=== PATIENT | female | born 1995 | race Asian ===

== ENCOUNTER 2017-08-21 19:02 | Emergency (ER) | payer OTHER ==
[2017-08-21] MEDS ORDERED: NS 0.9% 1000 ML* 1,000 ML IV ONE (20:02)
[2017-08-21 21:35] LABS: ABS Basophils 0.1 10^3/ul (0-0.2); ABS Eosinophils 0.2 10^3/ul (0-0.6); ABS Lymphocytes 3.3 10^3/ul (1.0-4.8); ABS Monocytes 0.6 10^3/ul (0-0.8); ABS Neutrophils 6.9 10^3/ul (1.5-7.7); ABS Nucleated RBC 0 10^3/ul; Eosinophil % 1.6 % (0-6); Hematocrit 39 % (35-47); Hemoglobin 13.2 g/dl (12.0-16.0); Lymphocyte % 29.9 % (25-47); Mean Corpuscular HGB Conc 34 g/dl (31-36); Mean Corpuscular Hemoglobin 28 pg (27-31); Mean Corpuscular Volume 83 fL (80-97); Mean Platelet Volume 8.9 um3 (7.4-10.4); Nucleated Red Blood Cells % 0; Platelet Count 319 10^3/ul (150-450); Red Blood Count 4.73 10^6/ul (4.0-5.4); Red Cell Distribution Width 14 % (10.5-15); White Blood Count 11.2 10^3/ul (3.5-10.8)
[2017-08-21 21:48] LABS: EGFR Non-African American 142.5 (>60)
[2017-08-21] MEDS ORDERED: Famotidine TAB* 20 MG PO ONE (22:10)
[2017-08-21] MEDS ORDERED: predniSONE TAB* 20 MG PO ONE (22:10)
[2017-08-21] MEDS ORDERED: diPHENhydraMINE PO* 25 MG PO ONE (22:10)
[2017-08-22 00:09] VITALS: BP 125/78
--- NOTE | 2017-08-22 04:37 | ED ---
Rosas Albright Jennifer, scribed for Nathan Bay MD on 08/21/17 at 2212 . Palpitations / Dysrhythmia - HPI Summary HPI Summary: The patient is a 22 year old female who was sent from [facility] for fast palpitations and high blood pressure today. The patient states her symptoms originally began with itchiness in the back of the throat, trouble swallowing, and a weird feeling in her tongue. She reports these symptoms began about 1-2 hours after eating salmon and shrimp. Patient states she took her usual medications today, including Zyrtec, Lexapro, and Metformin. She denies wheezes , tongue swelling, and lip swelling. She adds that she had a slight fever at [facility] but not in the ED. - History of Current Complaint Chief Complaint: EDDysrhythmPalp Time Seen by Provider: 08/21/17 22:03 Hx Obtained From: Patient Onset/Duration: Sudden Onset, Lasting Hours, Still Present, Other - Some symptoms have improved since initial onset Timing: Constant Severity Initially: Mild Severity Currently: Mild Character: Fast Aggravating: Nothing Alleviating: Nothing Associated Signs & Symptoms: Negative - wheezes, tongue swelling, lip swelling - Allergy/Home Medications Allergies/Adverse Reactions: Allergies Allergy/AdvReac Type Severity Reaction Status Date / Time No Known Allergies Allergy Verified 08/21/17 19:10 PMH/Surg Hx/FS Hx/Imm Hx History: Reports: Other Problems/Disorders - Hx PCOS Psychiatric History: Reports: Hx Anxiety, Hx Eating Disorder - Hx restrictive eating Infectious Disease History: No Infectious Disease History: Denies: Traveled Outside the [place] in Last 30 Days - Family History Known Family History: Negative: Renal Disease - Social History Occupation: Student Alcohol Use: None Hx Substance Use: No Substance Use Type: Reports: None Hx Tobacco Use: No Smoking Status (MU): Never Smoked Tobacco Review of Systems ENT: Negative - Tongue swelling, lip swelling, Other - Itchy throat, trouble swallowing, "weird feeling" in tongue Positive: Palpitations, Other - Hypertension Respiratory: Negative - Wheezing All Other Systems Reviewed And Are Negative: Yes Physical Exam - Summary Physical Exam Summary: Appearance: Well appearing, no pain distress, patient appears comfortable Skin: warm, dry, reflects adequate perfusion, no rash Head/face: normal Eyes: EOMI, ERIKA ENT: normal, No uvular edema, throat clear Neck: supple, non-tender Respiratory: CTA, breath sounds present, no wheezing Cardiovascular: Tachycardic, regular rhythm, pulses symmetrical Abdomen: non-tender, soft Bowel Sounds: present Musculoskeletal: normal, strength/ROM intact Neuro: normal, sensory motor intact, A&Ox3 Triage Information Reviewed: Yes Vital Signs On Initial Exam: Initial Vitals Temp Pulse Resp BP Pulse Ox 97.9 F 120 18 142/98 98 08/21/17 19:06 08/21/17 19:06 08/21/17 19:06 08/21/17 19:06 08/21/17 19:06 Vital Signs Reviewed: Yes Diagnostics - Vital Signs Vital Signs Temp Pulse Resp BP Pulse Ox 08/21/17 21:01 99.2 F 119 16 135/87 100 08/21/17 19:06 97.9 F 120 18 142/98 98 - Laboratory Lab Results: Lab Results 08/21/17 08/21/17 Range/Units 21:22 21:22 WBC 11.2 H (3.5-10.8) 10^3/ul RBC 4.73 (4.0-5.4) 10^6/ul Hgb 13.2 (12.0-16.0) g/dl Hct 39 (35-47) % MCV 83 (80-97) fL MCH 28 (27-31) pg MCHC 34 (31-36) g/dl RDW 14 (10.5-15) % Plt Count 319 (150-450) 10^3/ul MPV 8.9 (7.4-10.4) um3 Neut % (Auto) 61.8 (38-83) % Lymph % (Auto) 29.9 (25-47) % Union % (Auto) 5.6 (0-7) % Eos % (Auto) 1.6 (0-6) % Baso % (Auto) 1.1 (0-2) % Absolute Neuts (auto) 6.9 (1.5-7.7) 10^3/ul Absolute Lymphs (auto) 3.3 (1.0-4.8) 10^3/ul Absolute Monos (auto) 0.6 (0-0.8) 10^3/ul Absolute Eos (auto) 0.2 (0-0.6) 10^3/ul Absolute Basos (auto) 0.1 (0-0.2) 10^3/ul Absolute Nucleated RBC 0 10^3/ul Nucleated RBC % 0 Sodium 138 L (139-145) mmol/L Potassium 4.0 (3.5-5.0) mmol/L Chloride 103 (101-111) mmol/L Carbon Dioxide 26 (22-32) mmol/L Anion Gap 9 (2-11) mmol/L BUN 9 (6-24) mg/dL Creatinine 0.54 (0.51-0.95) mg/dL Est GFR ( Amer) 183.3 (>60) Est GFR (Non-Af Amer) 142.5 (>60) BUN/Creatinine Ratio 16.7 (8-20) Glucose 98 (70-100) mg/dL Calcium 9.2 (8.6-10.3) mg/dL Monoscreen Negative (Negative) Result Diagrams: 08/21/17 21:22 08/21/17 21:22 Lab Statement: Any lab studies that have been ordered have been reviewed, and results considered in the medical decision making process. - EKG 2100 Cardiac Rate: Tachycardia EKG Rhythm: Sinus Tachycardia - [address] Segment: Normal EKG Interpretation: Normal axis, intervals, and ST Re-Evaluation - Re-Evaluation First Eval Re-Evaluation Time: 23:11 Change: Improved Comment: The patient reports she feels better, and her heart rate is now down to 90 BPM. Course/Dx - Course Course Of Treatment: Patient with abrupt onset of throat tightness and tingling in the mouth after eating shellfish tonight. No previous allergy with same. Referred here with tachycardia. This proved to be sinus tachycardia. Her symptoms improved significantly with oral Benadryl, steroid and IV Pepcid along with fluids. She had no more serious signs of allergy. Her lungs were clear and she had no wheezing. I prescribed her ongoing H2 anabell as well as an EpiPen. I will not place her on steroids given that she has intense anxiety and I fear that the steroids will make that much worse. - Diagnoses Provider Diagnoses: Seafood allergy, Sinus tachycardia Discharge - Sign-Out/Discharge Documenting (check all that apply): Discharge/Admit/Transfer - Discharge Plan Condition: Improved Disposition: HOME Prescriptions: EPINEPHrine [Epipen 2-Giovanni] 0.3 mg IM ONCE PRN #1 box PRN Reason: severe allergy symptoms Famotidine TAB* [Pepcid 20 MG TAB*] 20 mg PO BID PRN #20 tab PRN Reason: Allergy Symptoms Patient Education Materials: Food Allergy (ED) Referrals: [facility] - Baljinder [Medical Doctor] - Kamala Kim NP [Primary Care Provider] - Additional Instructions: Strictly avoid shellfish in your diet. EpiPen is for severe symptoms. Call your doctor in the morning for referral for allergy testing. Return if worse, new symptoms or other concerns. - Billing Disposition and Condition Condition: STABLE Disposition: HOME The documentation as recorded by the Rosas thompson Jennifer accurately reflects the service I personally performed and the decisions made by , Nathan Bay MD.
== END 2017-08-21 23:30 | disposition home or self-care (01) ==
LOC: ED 19:02
DX: R09.89 Other specified symptoms and signs involving the circulatory and respiratory systems (principal); R20.2 Paresthesia of skin; T78.1XXA Other adverse food reactions, not elsewhere classified, initial encounter; R00.0 Tachycardia, unspecified
CPT/HCPCS: 36415; 80048; 85025; 86308; 87651; 93005; 96360; 99283; A9270-GY; J7512

== ENCOUNTER 2018-01-15 09:36 | Emergency (ER) | payer OTHER ==
[2018-01-15 09:50] VITALS: BP 122/73
--- NOTE | 2018-01-15 10:37 | UC ---
Throat Pain/Nasal [place] HPI - HPI Summary HPI Summary: 22-year-old woman coming in with a chief complaint sore throat. Symptoms started a week ago. The pain is getting worse. Now she is having sinus pressure with green rhinorrhea. Her ears feel clogged up. She is no posterior neck pain. She's tried throat lozenges they do not help. Drinking cold beverages does help. He said chills no documented fevers. - History of Current Complaint Chief Complaint: UCRespiratory Stated Complaint: SORE THROAT, AND EAR ACHE Time Seen by Provider: 01/15/18 10:22 Pain Intensity: 6 - Allergies/Home Medications Allergies/Adverse Reactions: Allergies Allergy/AdvReac Type Severity Reaction Status Date / Time No Known Allergies Allergy Verified 01/15/18 09:49 Home Medications: Home Medications Escitalopram Oxalate [Lexapro 20 mg] 20 mg PO DAILY 01/15/18 [History Confirmed 01/15/18] Metformin ER (NF) 1,000 mg PO BID 01/15/18 [History Confirmed 01/15/18] PMH/Surg Hx/FS Hx/Imm Hx Previously Healthy: Yes - Surgical History Surgical History: None - Family History Known Family History: Negative: Diabetes, Renal Disease - Social History Alcohol Use: Weekly Substance Use Type: None Smoking Status (MU): Never Smoked Tobacco Review of Systems Constitutional: Negative Skin: Negative Eyes: Negative ENT: Sore Throat, Ear Ache, Nasal Discharge, Sinus Congestion, Sinus Pain/ Tenderness Respiratory: Negative Cardiovascular: Negative Gastrointestinal: Negative Motor: Negative Neurovascular: Negative Musculoskeletal: Negative Neurological: Negative Psychological: Negative Is Patient Immunocompromised?: No All Other Systems Reviewed And Are Negative: Yes Physical Exam Triage Information Reviewed: Yes Appearance: No Pain Distress, Well-Nourished, Ill-Appearing - mild Vital Signs: Initial Vital Signs Temp 97.0 F 01/15/18 09:45 Pulse 103 01/15/18 09:45 Resp 18 01/15/18 09:45 BP 122/73 01/15/18 09:45 Pulse Ox 96 01/15/18 09:45 Vital Signs Reviewed: Yes Eye Exam: Normal ENT: Positive: Pharyngeal erythema, Nasal congestion, Nasal drainage, TM dull Neck exam: Normal Neck: Positive: Supple Respiratory: Positive: Lungs clear, Normal breath sounds, No respiratory distress Cardiovascular: Positive: RRR Musculoskeletal Exam: Normal Musculoskeletal: Positive: Strength Intact, ROM Intact Neurological Exam: Normal Neurological: Positive: Alert, Muscle Tone Normal Psychological Exam: Normal Psychological: Positive: Age Appropriate Behavior Skin Exam: Normal Throat Pain/Nasal Course/Dx - Course Course Of Treatment: DISCUSSED VIRAL VERSES BACTERIAL INFECTION AND THE ROLE OF ANTIBIOTICS. THE PATIENT WISHES TO BE ON ANTIBIOTICS AT THIS TIME. - Differential Dx/Diagnosis Provider Diagnoses: sinusits. pharyngitis Discharge - Sign-Out/Discharge Documenting (check all that apply): Patient Departure All imaging exams completed and their final reports reviewed: No Studies - Discharge Plan Condition: Stable Disposition: HOME Prescriptions: Amoxicillin/Clavulanate TAB* [Augmentin TAB 875*] 875 mg PO BID #20 tab Forms: *Work Release Referrals: Kamala Kim NP [Primary Care Provider] - Additional Instructions: FOLLOW UP WITH YOUR DOCTOR IF NOT COMPLETELY IMPROVED. GET RECHECKED FOR ANY WORSENING OF YOUR CONDITION OR QUESTIONS OR CONCERNS. - Billing Disposition and Condition Condition: STABLE Disposition: Home
== END 2018-01-15 10:40 | disposition home or self-care (01) ==
LOC: UCEAST 09:36
DX: J32.9 Chronic sinusitis, unspecified (principal); Z79.84 Long term (current) use of oral hypoglycemic drugs
CPT/HCPCS: 87651; 99212; G0463